=== PATIENT | female | born 1950 | race Caucasian/White ===

== ENCOUNTER 2017-03-06 17:29 | Emergency (ER) | payer MEDICARE, OTHER ==
[~2017-03-06 17:29] MED LIST: ADVAIR250 INH; ALEVE220 MG PO; ASA5GR PO; CRESTOR20 MG PO; P5 PO; PROAIR HFA INH; ULTRAM50 PO; V2 PO
== END 2017-03-06 22:53 | disposition home or self-care (01) ==
LOC: ER 17:29
DX: S42.002A Fracture of unspecified part of left clavicle, initial encounter for closed fracture (principal); F17.200 Nicotine dependence, unspecified, uncomplicated; J44.9 Chronic obstructive pulmonary disease, unspecified; I25.2 Old myocardial infarction; Z79.899 Other long term (current) drug therapy; Z79.82 Long term (current) use of aspirin; Z79.52 Long term (current) use of systemic steroids; W19.XXXA Unspecified fall, initial encounter
CPT/HCPCS: 73000-LT; 73030-LT; 73200-LT; 96374; 96375; 99284; A9270-GY; J1170; J2405